=== PATIENT | female | born 1985 | race American Indian/Alaskan Native ===

== ENCOUNTER 2017-06-13 00:16 | Inpatient (IN) | payer OTHER ==
[2017-06-13 00:41] VITALS: BMI 30.2
--- NOTE | 2017-06-13 00:43 | OBHP ---
Datetime: 06/13/2017 00:39 IP Adm Impression: Term, intrauterine ; No Active Labor IP Admit Plan: Admit to unit; Initiate Section protocol Admit Comment, IP Provider: at 39.2weeks here c/o rom at 11.30 pm.flud started coming, no ctxs, vb,+fm. pt was schuled for c/s for breecg obhx primi pmh den med pnv all nkda psh de sich de sse +pooling,+nitrazine bss breech a/p at 39.2weks breech/prom admit to l_d npo/ivf labs skin abxs cont cezar and efm dr garcia called and left a msg Pelvic Type - PN: Adequate Extremities - PN: Normal Abdomen - PN: Normal Back - PN: Normal Breast - PN: Normal Lungs - PN: Normal Heart - PN: Normal Thyroid - PN: Normal Neurologic - PN: Normal HEENT - PN: Normal General - PN: Normal FHR - Baseline A Provider: 130 Contraction Comments Provider: irrg Comments, ACOG Physical Exam: gravid,non te ext no edema,no calf ten IP Hx Assessment: The History has been Reviewed and is Current EGA AdmitDate IP: 39.2 Vital Signs Provider: Reviewed IP Indication for Induction Oth: breech IP Chief Complaint: Suspected ruptured membranes NICHD Variability Prov Fetus A: Moderate 6-25bpm NICHD Accel Fetus A IP Provider: 15X15 FHR Category Provider Fetus A: Category I Dilatation, Provider: 0 Effacement, Provider: 50 Station, Provider: -3 Genitourinary Exam: Normal DTRs - PN: Normal
[2017-06-13] MEDS ORDERED: Sodium Citrate/Citric Acid 15 ml Sol PO ONE (00:44)
[2017-06-13] MEDS ORDERED: Lactated Ringer's 1,000 ML IV SCH (00:45)
[2017-06-13] MEDS ORDERED: cefOXitin 2 GM in Sodium Chloride 0.9% 100 ML IV ONE ×2 (01:00→09:00)
[2017-06-13 01:26] LABS: BASO % 0.6 % (0.0-2.0); EOS # 0.2 K/uL (0.0-0.7); EOS % 2.4 % (0.0-4.0); HEMOGLOBIN 10.8 g/dL (11.0-16.0); LYMPH # 1.7 K/uL (1.0-4.3); LYMPH % 22.4 % (20.0-40.0); MEAN CELL VOLUME 87.5 fL (81.0-99.0); MEAN CORPUSCULAR HEMOGLOBIN 29.9 pg (27.0-31.0); MEAN CORPUSCULAR HGB CONC 34.1 g/dL (33.0-37.0); MEAN PLATELET VOLUME 8.1 fL (7.2-11.7); MONO # 0.8 K/uL (0.0-0.8); MONO % 10.5 % (0.0-10.0); NEUT # 4.8 K/uL (1.8-7.0); NEUT % 64.1 % (50.0-75.0); RBC 3.62 Mil/uL (3.80-5.20); WHITE BLOOD COUNT 7.4 K/uL (4.8-10.8)
[2017-06-13 01:32] LABS: SQUAMOUS EPITHIAL 2 /hpf (0-5); URINE BILIRUBIN NEGATIVE (NEGATIVE); URINE BLOOD NEGATIVE (NEGATIVE); URINE CLARITY Clear (Clear); URINE COLOR Straw (YELLOW); URINE GLUCOSE (UA) NORMAL (Normal); URINE LEUKOCYTE ESTERASE NEG Leu/uL (Negative); URINE NITRATE NEGATIVE (NEGATIVE); URINE PROTEIN NEGATIVE (NEGATIVE); URINE UROBILINOGEN NORMAL mg/dL (0.2-1.0)
[2017-06-13 01:33] LABS: INR 0.9; PROTHROMBIN TIME 10.1 SECONDS (9.7-12.2)
[2017-06-13 01:38] LABS: ALBUMIN 3.9 g/dL (3.5-5.0); ALT/SGPT 22 U/L (9-52); AST/SGOT 28 U/L (14-36); BLOOD UREA NITROGEN 10 mg/dL (7-17); CALCIUM 8.8 mg/dl (8.6-10.4); GFR AFRICAN-AMERICAN > 60; GFR NON-AFRICAN AMERICAN > 60
[2017-06-13 01:45] LABS: BARBITURATES, UR NEGATIVE (NEGATIVE); BENZODIAZEPINES, UR NEGATIVE (NEGATIVE); OPIATES, UR NEGATIVE (NEGATIVE); PHENCYCLIDINE, UR NEGATIVE (NEGATIVE)
[2017-06-13 01:50] LABS: BILIRUBIN,DIRECT 0.3 mg/dL (0.0-0.4)
[2017-06-13] MEDS ORDERED: Oxytocin 10 Units/ml Inj ONE (08:18)
[2017-06-13] MEDS ORDERED: Oxytocin 20 units in LR 2,000 ML IV ONE (08:21)
[2017-06-13] MEDS ORDERED: Sodium Citrate/Citric Acid 15 ml Sol ONE (08:22)
[2017-06-13] MEDS ORDERED: Phenylephrine 10 mg/ml Inj ONE (09:46)
--- NOTE | 2017-06-13 11:11 | OBDS ---
DELIVERY PERSONNEL Delivery Doctor: Oliverio Garza MD Scrub Nurse: Marnie Reese OBT Supervising Librarian: Veronique Garibay RN Anesthesiologist: MATERNAL INFORMATION Delivery Anesthesia: Spinal Medications in Delivery: Pitocin 20 units IV in 1000ml LR Estimated Blood Loss (ml): 500 Placenta Cultured: No Maternal Complications: None RN Comments: Liveborn Baby Boy. 9-9 Provider Comments: Uncomplicated Primary Section with delivery of a viable male with BW of 6Ibs 9oz delivered in Right sacroanterior position in a osvaldo breech. EBL- 500mls LABOR SUMMARY EDC: 06/18/2017 00:00 No. Babies in Womb: 1 Attempted: No Labor Anesthesia: None LABOR INFORMATION Reason for Induction: Not Applicable Oxytocin: N/A Group B Beta Strep: Done, Result Unknown Antibiotics # of Doses: 1 Antibiotics Time of Last Dose: Mefoxin 2gm IV @0843 Steroids Given: None Reason Steroids Not Administered: Not Applicable MEMBRANES Membranes Rupture Method: Spontaneous Rupture of Membranes: 06/12/2017 23:45 Length of Rupture (hrs): 10.52 Amniotic Fluid Color: Clear Amniotic Fluid Amount: Moderate Amniotic Fluid Odor: Normal STAGES OF LABOR Stage 3 hrs: 0 Stage 3 min: 2 CSECTION DELIVERY Primary Indication: Other Other Primary Indication: Breech CSection Urgency: Non Elective CSection Incidence: Primary Labor: Labor Elective: Nonelective CSection Incision: Lower Uterine Transverse Uterine Closure: Double-layer closure BABY A INFORMATION Infant Delivery Date/Time: 06/13/2017 10:16 Method of Delivery: Born in Route : No : N/A Forceps: N/A Vacuum Extraction: N/A Shoulder Dystocia : No SHOULDER DYSTOCIA BABY A Infant Delivery Date/Time: 06/13/2017 10:16 PRESENTATION/POSITION BABY A Presentation: Breech Cephalic Presentation: N/A Vertex Position: N/A Breech Presentation: Osvaldo PLACENTA INFORMATION BABY A Placenta Delivery Time : 06/13/2017 10:18 Placenta Method of Delivery: Manual Removal Placenta Status: Delivered SCORES BABY A Heart Rate 1 min: >100 bpm Resp Effort 1 min: Good Cry Reflex Irritability 1 min: Cough or Sneeze or Pulls Away Muscle Tone 1 min: Active Motion Color 1 min: Body [place], Extremities Blue Resuscitation Effort 1 min: N/A SCORE 1 MIN: 9 Heart Rate 5 min: >100 bpm Resp Effort 5 min: Good Cry Reflex Irritability 5 min: Cough or Sneeze or Pulls Away Muscle Tone 5 min: Active Motion Color 5 min: Body [place], Extremities Blue Resuscitation Effort 5 min: N/A SCORE 5 MIN: 9 INFANT INFORMATION BABY A Gestational Age at Delivery: 39.2 Gestational Status: Term Outcome : Liveborn Infant Condition : Stable Infant Sex: Male IDENTIFICATION/MEDS BABY A ID Band Number: [id number] ID Band Location: Left Leg; Left Arm Sensor Applied: Yes Sensor Number: [id number] Sensor Location : Cord Clamp Vitamin K Given : Not Given Erythromycin Given: Not Given WEIGHT/LENGTH BABY A Birthweight (gms): 2965 Weight (lb): 6 Weight (oz): 9 Length Inches: 19.00 Length cms: 48.3 CORD INFORMATION BABY A No. Cord Vessels: 3 Nuchal Cord : Around Neck x1, Tight Infant Cord pH Baby Arterial: 7.23 Cord Blood Taken: Yes Suction: Mouth; Nose ASSESSMENT BABY A Complications: None Physical Findings at Delivery: Within Normal Limits Respirations: Appears Normal Buyer Renter/ALS Called : No Infant Care By: Transferred To: Nursery
[2017-06-13] MEDS ORDERED: Morphine Monoject Barrel PCA 1mg/ml IV PRN (11:13)
--- NOTE | 2017-06-13 11:30 | PCM.SURG1 ---
Surgeon's Initial Post Op Note - Surgeon's Notes Surgeon: Dr Brunner Director Of Customer Service: DR Gruber Type of Anesthesia: General Endo Anesthesia Administered By: DR Hughes Pre-Operative Diagnosis: IUP at 39wks 4 days with Breech Presentation. Spontaneous rupture of membranes Operative Findings: Live Male BW of 6Ibs 9oz delivered in Right sacroanterior position with Cornelius breech presentation. scores of 9 and 9, fundal placenta, clear amniotic fluid. Normal appearing uterus with no discrete fibroid nodules identified. Both fallopian tubes and ovaries on either side appeared normal. EBL- 500mls,. IVFluids -1300mls. Urine output-300mls Post-Operative Diagnosis: SAme As preop Diagnosis Operation Performed: Primary LOw Transverse Section. Specimen/Specimens Removed: Umbilical Cord blood Estimated Blood Loss: EBL {In ML}: 500 Blood Products Given: N/A Post-Op Condition: Good Date of Surgery/Procedure: 06/13/17 Time of Surgery/Procedure: 11:33
[2017-06-13] MEDS ORDERED: Oxycodone/Acetaminophen 5/325 mg Tab PO PRN ×3 (11:42→11:47)
[2017-06-13] MEDS: Simethicone 80 mg Chewtab PO SCH ×2 (14:13→18:36)
[2017-06-13] MEDS ORDERED: Magnesium Sulfate 4 gm/100 ml 4 GM/100 ML BAG IVPB ONE ×2 (18:02→18:42)
[2017-06-13] MEDS: cefOXitin 2 GM in Dextrose 5% In Water 100 ML IV SCH (18:33)
[2017-06-13] MEDS ORDERED: Magnesium Sulfate 20 gm 20,000 MG/500 ML BAG IV ONE (19:18)
[2017-06-13] MEDS: Magnesium Sulfate 20 gm 20 GM/500 ML BAG IV SCH (19:21)
--- NOTE | 2017-06-13 20:47 | OP ---
PROCEDURE DATE: 06/13/2017 PREOPERATIVE DIAGNOSES: Intrauterine at 39+ weeks with breech presentation and spontaneous rupture of membrane. POSTOPERATIVE DIAGNOSES: Intrauterine at 39+ weeks with breech presentation and spontaneous rupture of membrane. PROCEDURE DONE: Primary low-transverse section performed on 06/13/2017. SURGEON: Mark Garza MD OIL PIPE INSPECTOR HELPER: Dr. Gruber. Assistance to this procedure was needed for exposure of tissues and help in the delivery of the baby. The education administrative assistant remained with the surgery throughout its entire length. TYPE OF ANESTHESIA: Spine. Anesthesia administered by Dr. Hughes. OPERATIVE FINDINGS: A live male with weight of 6 pounds 9 ounces. Delivered in the right saacroanterior position with osvaldo breech presentation. scores were 9 in the first and fifth minutes respectively. Placenta was fundal. Amniotic fluid was clear. The uterus appeared normal with no discrete fibroid nodules identified during the operation. Both fallopian tubes and the ovaries on either sides appeared normal. IV FLUID INTAKE: 1300 mL. ESTIMATED BLOOD LOSS: 500 mL. URINE OUTPUT: 300 mL of clear urine. COMPLICATIONS: There were no complications. SPECIMEN TAKEN: Umbilical cord blood analysis. DESCRIPTION OF PROCEDURE: After obtaining informed consent and going through all the risks, benefits and alternatives of the procedure and also discussing tissues about blood transfusion in case there is enough significant bleeding during the operation with the patient. The patient was sent to the OR with IV running and Lafleur catheter in place. The patient was sat on the OR table and after adequate spinal anesthesia was placed in the supine position with a left lateral tilt. The patient was then prepped and draped in the usual sterile fashion. A Pfannenstiel skin incision was made about 2.5 cm above the pubic symphysis and this incision was extended through the subcutaneous tissues through the rectus fascia was identified using a scalpel. A transverse incision was made in the rectus fascia using a Bovie device. After which, the rectus fascia was from the underlying rectus muscles both superiorly and inferiorly by means of blunt dissection and sharp dissection with Bains scissors. The rectus muscle was in the midline to expose the peritoneum, which was tented between two Rachel clamps and carefully entered using Metzenbaum scissor and with good visualization of the bladder. Once the abdominal cavity was entered, the vesicouterine fold of peritoneum was identified. This was incised in a transverse fashion using a Metzenbaum scissor. The bladder peritoneum was retracted inferiorly to expose the lower uterine segment. A low-transverse incision was made at this site using a scalpel. The incision was sent through the myometrial layer, so the amniotic membranes were identified. The incision was then extended to both sides in a blunt fashion. The baby which was situated in the right sacroanterior position was delivered (osvaldo breech) by applying gentle traction on the waist. The three-vessel cord was clamped and cut and the baby was given to the nurse after suctioning the nostrils and mouth. Baby cried immediately after . A sample of cord blood was obtained for analysis and the placenta was manually removed from the uterine cavity. The uterus was then brought out of the abdominal cavity and the cavity was cleaned of all debris using dry laparotomy pad. The uterine incision was then closed in two layers using Vicryl #0. The first layer in a running locked fashion and the second layer in a running fashion imbricating the first layer. This was performed until hemostasis was achieved. Irrigation of the pelvis with warmed normal saline was performed and the extra fluid suctioned off. Once hemostasis has been noted at the uterine incision point, attention was turned to the anterior abdominal wall which was closed in layers after removing all intraabdominal pad and instrument. The peritoneum was closed using #2-0 Vicryl. The rectus muscle was closed in a similar fashion with #2-0 Vicryl. The rectus fascia was reapproximated using Vicryl #0. The subcutaneous tissue was closed with #2-0 plain catgut and the skin was closed in a subcuticular fashion using #4-0 Vicryl. All counts of instruments, laparotomy pads and needles used were correct x3 and the patient was sent to the recovery room awake and in stable condition. Mark Garza MD CELINA
[2017-06-14] MEDS: cefOXitin 2 GM in Dextrose 5% In Water 100 ML IV SCH (03:00)
[2017-06-14] MEDS ORDERED: MAGNESIUM SULFATE IV ONE (06:25)
[2017-06-14] MEDS: Magnesium Sulfate 20 gm 20 GM/500 ML BAG IV SCH (06:28)
--- NOTE | 2017-06-14 07:13 | OBPN ---
Datetime: 06/14/2017 07:06 IP Progress Note Comment: Pt is here on the floor for Magnesium sulfate after elevated BPs following delivery by C-sarean delivery. Pt currently reports feeling well, Denies headache, dizziness, blurry vision and epigastric pain. Urine output adequate, Reflexes- 2+ Assessment: S/P Delivery, POD #1 Preeclampsia on Magnesium Sulfate. Plan: Continue with Magnesium Sulfate. Mag levels Q 6 hours. Datetime: 06/13/2017 00:39 Contraction Comments Provider: irrg FHR - Baseline A Provider: 130 Vital Signs Provider: Reviewed NICHD Accel Fetus A IP Provider: 15X15 FHR Category Provider Fetus A: Category I NICHD Variability Prov Fetus A: Moderate 6-25bpm Dilatation, Provider: 0 Effacement, Provider: 50 Station, Provider: -3
[2017-06-14 08:48] LABS: BASO # 0.1 K/uL (0.0-0.2); BASO % 0.5 % (0.0-2.0); EOS # 0.1 K/uL (0.0-0.7); EOS % 0.9 % (0.0-4.0); LYMPH # 0.9 K/uL (1.0-4.3); MEAN CELL VOLUME 86.4 fL (81.0-99.0); MEAN CORPUSCULAR HEMOGLOBIN 29.7 pg (27.0-31.0); MEAN CORPUSCULAR HGB CONC 34.3 g/dL (33.0-37.0); MEAN PLATELET VOLUME 7.6 fL (7.2-11.7); MONO % 8.7 % (0.0-10.0); NEUT # 9.1 K/uL (1.8-7.0); NEUT % 81.9 % (50.0-75.0); PLATELET COUNT 273 K/uL (130-400); RBC 3.39 Mil/uL (3.80-5.20); RED CELL DISTRIBUTION WIDTH 13.1 % (11.5-14.5); WHITE BLOOD COUNT 11.1 K/uL (4.8-10.8)
[2017-06-14 09:04] LABS: SQUAMOUS EPITHIAL < 1 /hpf (0-5); URINE BACTERIA RARE (<OCC); URINE BILIRUBIN NEGATIVE (NEGATIVE); URINE BLOOD NEGATIVE (NEGATIVE); URINE CLARITY Clear (Clear); URINE COLOR Yellow (YELLOW); URINE GLUCOSE (UA) NORMAL (Normal); URINE LEUKOCYTE ESTERASE TRACE Leu/uL (Negative); URINE NITRATE NEGATIVE (NEGATIVE); URINE PROTEIN NEGATIVE (NEGATIVE); URINE UROBILINOGEN NORMAL mg/dL (0.2-1.0)
[2017-06-14 09:09] LABS: INR 0.9; PROTHROMBIN TIME 10.3 SECONDS (9.7-12.2)
[2017-06-14 09:19] LABS: URINE HYALINE CAST 0-2 /lpf (0-2)
[2017-06-14 09:31] LABS: ANISOCYTOSIS SLIGHT; HYPOCHROMIC SLIGHT; LYMPHOCYTE 7 % (20-40); MONOCYTE 8 % (0-10); NEUTROPHIL 85 % (50-75); PLATELET ESTIMATE NORMAL (NORMAL); POIKILOCYTOSIS SLIGHT; TOTAL CELLS COUNTED 100
[2017-06-14 09:32] LABS: MICROCYTOSIS SLIGHT
[2017-06-14 09:36] LABS: ALBUMIN 3.4 g/dL (3.5-5.0); ALT/SGPT 25 U/L (9-52); AST/SGOT 42 U/L (14-36); BLOOD UREA NITROGEN 4 mg/dL (7-17); CALCIUM 7.2 mg/dl (8.6-10.4); GFR AFRICAN-AMERICAN > 60; GFR NON-AFRICAN AMERICAN > 60
[2017-06-14] MEDS: Prenatal Multivit/Folic Acid/Iron Tab PO SCH (09:58)
[2017-06-14] MEDS: Simethicone 80 mg Chewtab PO SCH ×4 (09:58→22:00)
[2017-06-14] MEDS: Folic Acid/Ascorbic Acid/Ferrous Sulfate 1 Tab PO SCH (09:58)
[2017-06-14] MEDS ORDERED: Oxycodone/Acetaminophen 5/325 mg Tab ONE (11:00)
[2017-06-14] MEDS ORDERED: cefOXitin IV 2 gm in Dextrose 2 GM/50 ML BAG IVPB ONE (11:01)
[2017-06-14] MEDS ORDERED: cefOXitin 2 GM in Sodium Chloride 0.9% 100 ML IV SCH (11:30)
[2017-06-14 12:12] LABS: MAGNESIUM 4.3 mg/dL (1.6-2.3)
[2017-06-14] MEDS ORDERED: Magnesium Sulfate 20 gm 20,000 MG/500 ML BAG IV ONE (16:17)
[2017-06-15 00:03] VITALS: O2SAT 98
[2017-06-15] MEDS: Prenatal Multivit/Folic Acid/Iron Tab PO SCH (09:33)
[2017-06-15] MEDS: Folic Acid/Ascorbic Acid/Ferrous Sulfate 1 Tab PO SCH (09:33)
--- NOTE | 2017-06-15 10:29 | OBPPN ---
Datetime: 06/15/2017 10:24 PP Pain Prov: Within normal limits PP Nausea Prov: Denies PP Flatus Prov: Yes PP Breasts Prov: Normal PP Heart Prov: Normal PP Lungs Prov: Normal PP Abdomen/Uterus Prov: Normal PP Lochia Prov: Normal PP Vulva/Perineum Prov: Normal PP CVA Tenderness Prov: Normal PP Extremities Prov: Normal PP Comments Phys Exam Prov: Abd: Soft, NT, BS- present UT- firm Incision, Clean and dry PP Impression Prov: Normal progression PP Plan Prov: Continue present management PP Impression Other Prov: Preeclampsia, S/P Magnesium Sulfate PP Progress Note Prov: S/P Section, S/P Magnesium Sulfate for preeclampsia. POD #2, clinically Stable On Labetalol po Plan Continue Care. Vital Signs Provider PP: Reviewed
[2017-06-15] MEDS: Simethicone 80 mg Chewtab PO SCH ×4 (14:43→21:14)
[2017-06-16] MEDS: Prenatal Multivit/Folic Acid/Iron Tab PO SCH (09:55)
[2017-06-16] MEDS: Simethicone 80 mg Chewtab PO SCH ×2 (10:00→16:18)
--- NOTE | 2017-06-16 10:03 | OBPPN ---
Datetime: 06/16/2017 09:58 PP Pain Prov: Within normal limits PP Nausea Prov: Denies PP Flatus Prov: Yes PP Breasts Prov: Normal PP Heart Prov: Normal PP Lungs Prov: Normal PP Abdomen/Uterus Prov: Normal PP Lochia Prov: Normal PP Vulva/Perineum Prov: Normal PP CVA Tenderness Prov: Normal PP Extremities Prov: Normal PP C/S Incision Prov: Normal PP Progress Prov: Normal PP Comments Phys Exam Prov: Abd: Soft, NT , BS- present UT- Firm Incision - Clean and dry BPs- Normalized PP Impression Prov: Normal progression PP Plan Prov: Discharge PP Progress Note Prov: S/P Section, POD#3 S/p Magnesium Sulfate for Preeclampsia, normalized BPS On Labetalol Clinically stable. Plan: D/C Home F/U in the office in 1 week for BP check. Vital Signs Provider PP: Reviewed
[2017-06-16] MEDS: Folic Acid/Ascorbic Acid/Ferrous Sulfate 1 Tab PO SCH (10:04)
--- NOTE | 2017-06-16 10:11 | OBDCSUM ---
Datetime: 06/16/2017 10:02 Discharged to, Provider: Home Follow up at, Provider: Dr Britton Disch Instr Activity: Normal activity Disch Instr Diet: Regular Discharge Instructions, Provider: Routine instructions given Discharge Diagnosis, Provider: Term Delivered Discharge Time: 06/16/2017 10:02 Follow up in weeks, Provider: 1 week Disch Referrals: None Contraception discussed, Prov: Yes Discharge Comment, Provider: S/P Section and Magnesium sulfate for preeclampsia, Clinically Stable. Discharge Diagnosis Prov Other: S/P Section and Magnesium sulfate for preeclampsia, Clinica lly Stable.
[2017-06-16] MEDS ORDERED: Influenza Vaccine 60 mcg/0.5 mL SYR (4YR UP) IM ONE (16:17)
[2017-06-16 22:29] VITALS: BP 136/85; PULSE 90; RESP 20; TEMP 98
== END 2017-06-16 17:30 | disposition home or self-care (01) | DRG 766 ==
LOC: C.EROB 00:16 → C.4D 00:40 → C.4M 13:30 → C.4D 18:35 → C.4M 06-14 19:00
PROVIDERS: ADMIT Obstetrics & Gynecology; ATTEND Obstetrics & Gynecology
PROC: 10D00Z1 Extraction of Products of Conception, Low, Open Approach (ICD-10-PCS; principal; 2017-06-13)
DX: O32.1XX0 Maternal care for breech presentation, not applicable or unspecified (principal); O14.94 Unspecified pre-eclampsia, complicating childbirth; O42.02 Full-term premature rupture of membranes, onset of labor within 24 hours of rupture; O69.1XX0 Labor and delivery complicated by cord around neck, with compression, not applicable or unspecified; O99.334 Smoking (tobacco) complicating childbirth; F17.210 Nicotine dependence, cigarettes, uncomplicated; Z3A.39 39 weeks gestation of pregnancy; Z37.0 Single live birth

== ENCOUNTER 2017-07-10 10:55 | Emergency (ER) | payer OTHER ==
[2017-07-10 10:56] VITALS: BMI 30.2
[2017-07-10 11:26] VITALS: O2SAT 100
--- NOTE | 2017-07-10 12:31 | C.PDOC ---
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 Patient has a done 3 weeks ago she reprots that while she was she had HTN and was on medications to control it. Patient states that after she had her baby she was d/c home with a prescription for labetalol that she has not been taking. Patient is currently asymptomatic, denies any headache, dizziness, CP, SOB, weakness, numbness. Time Seen by Provider: 07/10/17 11:50 Chief Complaint (Nursing): High Blood Pressure History Per: Patient History/Exam Limitations: no limitations Onset/Duration Of Symptoms: Hrs Current Symptoms Are (Timing): Still Present Quality Of Symptoms: Asymptomatic Exacerbating Factor(s): Pos: Recently Missed Doses Of Medication Recent travel outside of the [place]: No Additional History Per: Patient Past Medical History Reviewed: Historical Data, Nursing Documentation, Vital Signs Vital Signs: Last Vital Signs Temp 99.1 F 07/10/17 14:13 Pulse 63 07/10/17 14:13 Resp 18 07/10/17 14:13 BP 167/108 H 07/10/17 14:13 Pulse Ox 100 07/10/17 14:16 - Medical History PMH: Asthma, HTN (during preg) Denies: Depression, Diabetes, Chronic Kidney Disease Surgical History: - [facility] EXTRACTION OF POC, LOW CERVICAL, OPEN APPROACH (06/13/17) Family History: States: Unknown Family Hx - Social History Hx Alcohol Use: No Hx Substance Use: Yes (smokes marijuana) - Immunization History Hx Tetanus Toxoid Vaccination: No Hx Influenza Vaccination: No Hx Pneumococcal Vaccination: No Review Of Systems Constitutional: Negative for: Fever, Chills Eyes: Negative for: Vision Change Cardiovascular: Negative for: Chest Pain, Palpitations Respiratory: Negative for: Cough, Shortness of Breath Gastrointestinal: Negative for: Nausea, Vomiting, Abdominal Pain Genitourinary: Negative for: Dysuria, Hematuria Skin: Negative for: Rash Neurological: Negative for: Weakness, Numbness, Headache, Dizziness Physical Exam - Physical Exam Appears: Non-toxic, No Acute Distress Skin: Normal Color, Warm, Dry Head: Atraumatic, Normacephalic Eye(s): bilateral: Normal Inspection Nose: No Discharge, No Deformity Oral Mucosa: Moist Neck: Normal ROM, Supple Chest: Symmetrical Cardiovascular: Rhythm Regular, No Murmur Respiratory: Normal Breath Sounds, No Rales, No Rhonchi, No Wheezing Gastrointestinal/Abdominal: Soft, No Tenderness, No Guarding, No Rebound Extremity: Normal ROM, No Pedal Edema, No Calf Tenderness, No Deformity, No Swelling Neurological/Psych: Oriented x3, Normal Speech, Normal Cognition Gait: Steady ED Course And Treatment - Laboratory Results Result Diagrams: 07/10/17 12:42 07/10/17 12:42 Lab Interpretation: Normal Urine POC: Negative ECG: Interpreted By Me ECG Rhythm: Sinus Rhythm ECG Interpretation: Normal O2 Sat by Pulse Oximetry: 100 (On RA) Pulse Ox Interpretation: Normal Progress Note: Treated with labatolol 100 mg PO. On re-evaluation lungs clear, denies dizziness, headache or chest pain. Ambulating with steady gait. Discharge in stable condition Reassessment Condition: Improved Medical Decision Making Medical Decision Making: Impression : hypertension Plan: * EKG * Labs * UA * Labetalol 100 mg PO Disposition Counseled Patient/Family Regarding: Studies Performed, Diagnosis, Need For Followup - Disposition Referrals: Cedric Nichole MD [Medical Doctor] - Disposition: HOME/ ROUTINE Disposition Time: 14:20 Condition: STABLE Additional Instructions: Follow up with PMD for further evaluation Take B/P meds as directed Return to ED if any increase symptoms Instructions: Hypertension (ED) Forms: [facility] ([place]) - POA Present On Arrival: None - Clinical Impression Clinical Impression: Abnormal blood pressure, Hypertension - PA / HISTOLOGY SPECIALIST / Resident Statement MD/DO has reviewed & agrees with the documentation as recorded. - Scribe Statement The provider has reviewed the documentation as recorded by the Scribe Feng Flores All medical record entries made by the Scribe were at my direction and personally dictated by me. I have reviewed the chart and agree that the record accurately reflects my personal performance of the history, physical exam, medical decision making, and the department course for this patient. I have also personally directed, reviewed, and agree with the discharge instructions and disposition.
[2017-07-10 12:54] LABS: BASO # 0.1 K/uL (0.0-0.2); BASO % 2.1 % (0.0-2.0); EOS # 0.4 K/uL (0.0-0.7); EOS % 9.1 % (0.0-4.0); HEMOGLOBIN 11.4 g/dL (11.0-16.0); LYMPH # 1.6 K/uL (1.0-4.3); LYMPH % 39.3 % (20.0-40.0); MEAN CELL VOLUME 84.7 fL (81.0-99.0); MEAN CORPUSCULAR HEMOGLOBIN 27.7 pg (27.0-31.0); MEAN CORPUSCULAR HGB CONC 32.7 g/dL (33.0-37.0); MEAN PLATELET VOLUME 7.2 fL (7.2-11.7); MONO # 0.4 K/uL (0.0-0.8); MONO % 10.5 % (0.0-10.0); NEUT # 1.6 K/uL (1.8-7.0); RBC 4.12 Mil/uL (3.80-5.20); RED CELL DISTRIBUTION WIDTH 13.4 % (11.5-14.5)
[2017-07-10 12:55] LABS: HCG,QUALITATIVE URINE NEGATIVE (NEGATIVE)
[2017-07-10 12:58] LABS: WHITE BLOOD COUNT 4.1 K/uL (4.8-10.8)
[2017-07-10 13:08] LABS: ALB/GLOB RATIO 1.1 (1.0-2.1); ALBUMIN 4.3 g/dL (3.5-5.0); ALT/SGPT 39 U/L (9-52); AST/SGOT 32 U/L (14-36); BLOOD UREA NITROGEN 16 mg/dL (7-17); CALCIUM 9.3 mg/dl (8.6-10.4); GFR AFRICAN-AMERICAN > 60; GFR NON-AFRICAN AMERICAN > 60
[2017-07-10 13:21] VITALS: RESP 18
[2017-07-10 13:22] LABS: SQUAMOUS EPITHIAL 10 /hpf (0-5); URINE BILIRUBIN NEGATIVE (NEGATIVE); URINE BLOOD 1+ (NEGATIVE); URINE CLARITY Clear (Clear); URINE COLOR Straw (YELLOW); URINE GLUCOSE (UA) NORMAL (Normal); URINE LEUKOCYTE ESTERASE 3+ Leu/uL (Negative); URINE NITRATE NEGATIVE (NEGATIVE); URINE PROTEIN NEGATIVE (NEGATIVE); URINE UROBILINOGEN NORMAL mg/dL (0.2-1.0)
[2017-07-10 14:19] VITALS: BP 167/108; PULSE 63; TEMP 99.1
--- NOTE | 2017-07-11 12:49 | CARD ---
APPROVED REPORT EKG Measurement Heart [id number] <Conclusion> Normal sinus rhythm Minimal voltage criteria for LVH, may be normal variant Borderline ECG
== END 2017-07-10 14:34 | disposition home or self-care (01) ==
LOC: C.ER 10:55
DX: I10 Essential (primary) hypertension (principal)